=== PATIENT | female | born 1940 | race Caucasian/White ===

== ENCOUNTER 2018-08-01 12:22 | Inpatient (IN) ==
[2018-08-01] MEDS ORDERED: Naloxone 0.4 MG/ML INJ IVP PRN (16:55)
[2018-08-01] MEDS ORDERED: Heparin 25,000 UNIT/500 ML D5W 25,000 UNIT/500 ML BAG IVC SCH (17:00)
--- NOTE | 2018-08-01 17:26 | Internal Med History&Physical ---
Date of Encounter: 08/01/18 Time of Encounter: 16:30 Internal Medicine - H&P: HPI Chief complaint: Back Pain Admitted From: Home Plans for Post Hospital Care: Home History of present illness: Ms. Velasco is a 78 year old female with past medical history significant for hypertension, stable aortic aneurysm, rheumatoid arthritis, hypothyroidism, lung nodule, and GERD who presented to [facility] ER for constant sharp left lower back pain radiating to her left chest starting last night while at rest. The pain ranged in intensity from 4/10 - 8/10. Pain was accompanied by shortness of breath and nausea. Took Tylenol at home with no improvement. Denies any alleviating or exacerbating factors. Reports chronic pain with rheumatoid arthritis but this seemed different. Denies any vomiting, diaphoresis, abdominal pain, bowel or bladder changes. Received Toradol, Dilaudid, and started on heparin drip in ER and is currently reporting no pain at this time. ER reported EKG as sinus rhythm with no acute changes. Discussed patient with Dr Lux. Past Med Surg Social Fam HX - Past Medical History Medical history: arthritis, GERD, hypertension, RA, thyroid disease, other Additional medical history: OSTEOMYLITIS, CONSTIPATION Psychiatric history: no psych history - Past Surgical History Surgical History: hip replacement, orthopedic, other Additional surgical history: Right shoulder replacement. - Social History Smoking Status: Never smoker Smokeless Tobacco Status: No Alcohol use: none Drug use: none - Family History Brother Hx Family Cardiac Disorders: Yes (Hypertension) Internal Medicine - H&P: Meds Levothyroxine [Synthroid] 100 mcg PO DAILY 01/06/16 [History] Omeprazole [PriLOSEC] 20 mg PO DAILY 01/06/16 [History] amLODIPine [Norvasc] 10 mg PO DAILY 01/06/16 [History] Ondansetron ODT [Zofran ODT] 4 mg SL Q6HR PRN #10 tab.rapdis 02/07/16 [Rx] hydrALAZINE [HydrALAZINE] 25 mg PO BID 02/07/16 [History] Aspirin [Lo-Dose Aspirin EC] 81 mg PO DAILY 01/13/18 [History] Azathioprine [Imuran] 50 mg PO BID 01/13/18 [History] Cholecalciferol (D-3) [Vitamin D] 1,000 unit PO DAILY 01/13/18 [History] Amlodipine Besylate 10 mg PO DAILY 03/09/18 [History] Calcium Carbonate/Vitamin D3 [Calcium 500+D Tablet Chew] 1 tab PO DAILY [History] Docusate Sodium [Dok] 100 mg PO BID 03/09/18 [History] Vit C/E/Zn/Coppr/Lutein/Zeaxan [Preservision Areds 2 Softgel] 1 tab PO DAILY 08/17 [History] Aspirin Enteric Coated [Aspirin EC] 81 mg PO DAILY tablet. 03/10/18 [Rx] Azathioprine [Imuran] 50 mg PO BID tablet 03/10/18 [Rx] Calcium Carbonate [Tums] 500 mg PO DAILY tab.chew 03/10/18 [Rx] Cholecalciferol (D-3) [Vitamin D] 1,000 unit PO DAILY tablet 03/10/18 [Rx] Docusate [Colace] 100 mg PO BID capsule 03/10/18 [Rx] Levothyroxine [Synthroid] 100 mcg PO 0630 tablet 03/10/18 [Rx] Multivit/Ca/Min/Fe/FA [Thera M Plus] 1 tab PO DAILY tablet 03/10/18 [Rx] Omeprazole [PriLOSEC] 20 mg PO DAILY capsule. 03/10/18 [Rx] amLODIPine [Norvasc] 10 mg PO DAILY tablet 03/10/18 [Rx] hydrALAZINE [HydrALAZINE] 25 mg PO BID tablet 03/10/18 [Rx] 3 Allergy/AdvReac Type Severity Reaction Status Date / Time morphine Allergy Nausea Verified 03/09/18 13:12 Procaine [From Novocain] Allergy Blister Verified 03/09/18 13:12 risedronate sodium Allergy Unconscious Verified 03/09/18 13:12 [From Actonel] Sulfa (Sulfonamide Allergy See Verified 03/09/18 13:12 Antibiotics) Comments Teriparatide [From Forteo] Allergy Swelling Verified 03/09/18 13:12 of Lip/Tongue/Throat All Systems PM: A 10-system review of systems was performed and is negative for pertinent findings except as documented above in the HPI. - Constitutional Vitals: Temp Pulse Resp BP Pulse Ox 98.1 F 73 16 152/70 96 08/01/18 16:02 08/01/18 16:02 08/01/18 16:02 08/01/18 16:02 08/01/18 16:02 Exam: General: Alert and oriented. Skin:Normal color, no rash, no lesions. HEENT:Pupils equal, round and reactive. Cardiovascular:Normal S1 & S2, no rubs, murmurs or gallops. No JVD. Pulse regular. Lungs:Normal breath sounds, no wheezes or crackles. Abdomen:Soft, non-tender, no rigidity. Extremities:No edema or tenderness, no joint swelling or clubbing. Chronic contractures noted to bilateral hands and feet. Neurological:Normal cognition and motor skills. Pulses:Carotid and radial pulses normal +2. Rest of the physical exam is non contributory. - Assessment and plan (1) Non-ST elevation [place] (NSTEMI) Current Visit: Yes Status: Acute Assessment and plan: Continuous hospital monitor. Initial troponins 0.21 to 0.17, third troponin ordered for 17:30 today. Heparin drip started in ER, will continue. Cardiac diet. Cardiology consulted. (2) Hypertension Current Visit: Yes Status: Chronic Assessment and plan: Continue home medications. Qualifiers: Hypertension type: unspecified Qualified Code(s): I10 - Essential (primary ) hypertension (3) Lung nodule Current Visit: Yes Status: Chronic Assessment and plan: Partially calcified nodule in left upper lobe identified on Chest CTA, will need outpatient follow up. - Time Spent With Patient Total time spent is greater than 50% in coordination of care (as documented) at patient's floor/unit and/or counseling patient:
[2018-08-01 17:41] LABS: Heparin anti-factor XA UFH 0.96 IU/mL (0.30-0.70); INR 1.1; Prothrombin Time 11.9 Seconds (9.4-12.1)
[2018-08-01] MEDS ORDERED: *HR* Heparin 5,000 UNIT/ML VIAL IVP PRN ×2 (19:46)
[2018-08-02 01:57] LABS: Basophils % 0.9 %; Eosinophils # 0.4 K/mcL (0.0-0.6); Eosinophils % 8.1 %; Hematocrit 32.9 % (35.3-44.9); Hemoglobin 10.6 g/dL (11.5-15.4); Immature Granulocytes % 0.2 % (0-4); Lymphocytes % 22.1 %; Mean Corpuscular HGB Conc 32.2 g/dL (31.6-35.5); Mean Corpuscular Hemoglobin 31.5 pg (28.0-33.3); Mean Corpuscular Volume 97.9 fL (83.0-100.0); Mean Platelet Volume 9.3 fL (9.4-12.4); Monocytes # 0.4 K/mcL (0.0-1.3); Monocytes % 9.8 %; Neutrophils # 2.6 K/mcL (1.6-8.9); Platelet Count 238 K/mcL (140-400); Red Blood Count 3.36 M/mcL (3.82-4.97); Red Cell Distribution Width 15.3 % (11.5-14.5); Segmented Neutrophils % 58.9 %
[2018-08-02 02:15] LABS: BUN/Creatinine Ratio 23 (6-26); Blood Urea Nitrogen 16 mg/dL (8-23); Calcium 8.8 mg/dL (8.6-10.3); Carbon Dioxide 25 mEq/L (23-29); Chloride 107 mEq/L (98-107); Glucose 92 mg/dL (70-105); Osmolality,Calculated 287 (280-300); Potassium 3.7 mEq/L (3.5-5.1); Sodium 138 mEq/L (136-145); eGFR For Non-African Americans > 60 (> 60)
[2018-08-02] MEDS ORDERED: Ondansetron ODT 4 MG TAB.RAPDIS SL PRN (08:21)
[2018-08-02] MEDS ORDERED: NON-FORMULARY MEDICATION 1 EACH EACH (Calcium Carbonate/Vitamin D3 [Calcium 500+D Tablet C PO SCH (09:00)
--- NOTE | 2018-08-02 09:48 | Cardiology Consult Note ---
Date of Encounter: 08/02/18 Time of Encounter: 09:45 Assessment and Plan (1) Non-ST elevation [place] (NSTEMI) Current Visit: Yes Status: Acute Troponin 0.21, 0.17, 0.20. Presented with low/mid back pain. Improved with Dilaudid. BP 195/75 on presentation. On heparin gtt. ECG no ischemic changes compared to previous. DDimer elevated. CTA negative for PE. Denies cardiac hx. TTE to evaluate structure and function. Recommend C to further evaluate. R/B/A discussed. Pt agrees to proceed. LHC today. Continue ASA. Add statin and BB. Discussion w patient/family: The assessment and plan as outlined above was discussed with the patient and/or family members who expressed understanding and agreement. All questions were answered. Thank you for involving us in the care of your patient. Please call with any questions. I will discuss all the above with Dr. Figueredo and make changes as necessary. History of Present Illness Consult date: 08/02/18 Requesting physician: Zach Handy Consult reason: NSTEMI Chief complaint: back pain History of present illness: Ms. Velasco is a 78 year old female with PMH of HTN, stable aortic aneurysm, RA, hypothyroidism, lung nodule, and GERD who presented to [facility] ER for constant sharp lower back pain. Pain was accompanied by shortness of breath and nausea. Took Tylenol at home with no improvement. Denies any alleviating or exacerbating factors. Reports chronic pain with RA, but this seemed different. Received Toradol, then Dilaudid in the ED. Pt reports pain resolved with Dilaudid without recurrence. Denies actual chest pain. No known cardiac history. Negative stress test 07/14/16. Troponins 0.21, 0.17, 0.20. Cardiology consulted for further recs. Past Med Surg Social Fam HX - Past Medical History Medical history: arthritis, GERD, hypertension, RA, thyroid disease, other Additional medical history: OSTEOMYLITIS, CONSTIPATION Psychiatric history: no psych history - Past Surgical History Surgical History: hip replacement, orthopedic, other Additional surgical history: Right shoulder replacement. - Social History Smoking Status: Never smoker Smokeless Tobacco Status: No Alcohol use: none Drug use: none - Family History Brother Hx Family Cardiac Disorders: Yes (Hypertension) Medications and Allergies Omeprazole [PriLOSEC] 20 mg PO DAILY 01/06/16 [History] hydrALAZINE [HydrALAZINE] 25 mg PO BID 02/07/16 [History] Aspirin [Lo-Dose Aspirin EC] 81 mg PO DAILY 01/13/18 [History] Calcium Carbonate/Vitamin D3 [Calcium 500+D Tablet Chew] 1 tab PO DAILY [History] Vit C/E/Zn/Coppr/Lutein/Zeaxan [Preservision Areds 2 Softgel] 1 tab PO DAILY 08/17 [History] Docusate [Colace] 100 mg PO BID capsule 03/10/18 [Rx] Levothyroxine [Synthroid] 100 mcg PO 0630 tablet 03/10/18 [Rx] amLODIPine [Norvasc] 10 mg PO DAILY tablet 03/10/18 [Rx] Azathioprine [Imuran] 50 mg PO DAILY 08/01/18 [History] 3 Allergy/AdvReac Type Severity Reaction Status Date / Time morphine Allergy Nausea Verified 03/09/18 13:12 Procaine [From Novocain] Allergy Blister Verified 03/09/18 13:12 risedronate sodium Allergy Unconscious Verified 03/09/18 13:12 [From Actonel] Sulfa (Sulfonamide Allergy See Verified 03/09/18 13:12 Antibiotics) Comments Teriparatide [From Forteo] Allergy Swelling Verified 03/09/18 13:12 of Lip/Tongue/Throat All Systems Review: The remainder of the systems were reviewed and are negative - Cardiovascular Cardiovascular: as per HPI, dyspnea at rest - Respiratory Respiratory: dyspnea Physical Examination Vital Signs, Last 4 Hours Temp Pulse Resp BP Pulse Ox 08/02/18 07:09 98.2 F 66 15 153/77 97 Vital Signs Temp Pulse Resp BP Pulse Ox 08/02/18 07:09 98.2 F 66 15 153/77 97 08/02/18 03:12 98.1 F 74 16 154/57 97 08/01/18 23:29 98.4 F 78 16 155/64 95 08/01/18 18:46 98.1 F 77 16 157/69 94 08/01/18 16:02 98.1 F 73 16 152/70 96 Intake and Output 08/01/18 08/02/18 08/02/18 23:59 07:59 15:59 Intake Total 59 / 59 78 / 78 Balance Intake: IV Fluids Heparin 25,000 UNIT/500 ML D5W 25,000 unit In 500 ml @ 12 UNIT /KG/HR 16.996 mls/hr IVC .Q24H [facility] Rx#:[id number] Other: Weight 70.817 kg 70.3 kg Patient Weight 08/02/18 23:59 Weight 70.3 kg General: Conversant, No Apparent Distress HEENT: Atraumatic, Normocephaly, Mucus Membranes Moist Neck: No JVD, Normal carotid pulses Cardiac: Reg Rate and Rhythm, Normal S1 and S2, No Murmur Lungs: Normal Breath Sounds, No Wheeze, Rales, Rhonchi Neuro: Alert and responsive, No focal deficits noted Abdomen: Soft, Non-Tender Skin: No rashes noted on visualized skin Musculoskeletal: No Chest Wall Tenderness Extremities: No Clubbing, No Cyanosis, No Edema, Normal Pulses Results 08/02/18 01:40 08/02/18 01:40 Lab Results 08/01/18 08/01/18 08/02/18 17:23 19:52 01:40 WBC 4.5 Hgb 10.6 L Hct 32.9 L Plt Count 238 INR 1.1 Sodium Potassium Chloride Carbon Dioxide BUN Creatinine Glucose Calcium Troponin I 0.20 H* 08/02/18 01:40 WBC Hgb Hct Plt Count INR Sodium 138 Potassium 3.7 Chloride 107 Carbon Dioxide 25 BUN 16 Creatinine 0.71 Glucose 92 Calcium 8.8 Troponin I Short CBC 08/02/18 Range/Units 01:40 WBC 4.5 (4.3-11.1) K/mcL Hgb 10.6 L (11.5-15.4) g/dL Hct 32.9 L (35.3-44.9) % Plt Count 238 (140-400) K/mcL Neutrophils # 2.6 (1.6-8.9) K/mcL BMP 08/02/18 Range/Units 01:40 Sodium 138 (136-145) mEq/L Potassium 3.7 (3.5-5.1) mEq/L Chloride 107 (98-107) mEq/L Carbon Dioxide 25 (23-29) mEq/L BUN 16 (8-23) mg/dL Creatinine 0.71 (0.60-1.20) mg/dL Glucose 92 (70-105) mg/dL Calcium 8.8 (8.6-10.3) mg/dL Cardiac Enzymes 08/01/18 Range/Units 19:52 Troponin I 0.20 H* (< 0.04) ng/mL Active Medications Amlodipine Besylate (Norvasc) 10 mg PO DAILY [facility] PRN Reason: Protocol Stop: 02/01/19 09:01 Aspirin (Aspirin Ec) 81 mg PO DAILY [facility] Stop: 02/01/19 09:01 Azathioprine (Imuran) 50 mg PO DAILY [facility] Stop: 02/01/19 09:01 Calcium Carbonate (Tums) 500 mg PO DAILY [facility] Stop: 02/01/19 09:01 Docusate Sodium (Colace) 100 mg PO BID [facility] PRN Reason: Protocol Stop: 02/01/19 09:01 Heparin Sodium (Porcine) (Heparin) 4,000 unit IVP Q6HR PRN PRN Reason: SEE COMMENTS Stop: 01/31/19 19:47 Heparin Sodium (Porcine) (Heparin) 2,000 unit IVP Q6H PRN PRN Reason: SEE COMMENTS Stop: 01/31/19 19:47 Hydralazine HCl (Hydralazine) 25 mg PO BID [facility] Stop: 02/01/19 09:01 Heparin Sodium/Dextrose (Heparin 25,000 Unit/500 Ml D5w) 25,000 unit in 500 mls @ 16.996 mls/hr IVC .Q24H [facility]; 12 UNIT/KG/HR PRN Reason: Protocol Stop: 01/31/19 17:01 Last Titration: 08/02/18 02:12 Dose: 9 unit/kg/hr, 12.747 mls/hr Levothyroxine Sodium (Synthroid) 100 mcg PO 0630 [facility] Stop: 02/02/19 06:31 Multivitamins/Calcium (Thera M Plus) 1 tab PO DAILY [facility] Stop: 02/01/19 09:01 Naloxone HCl (Narcan) 0.4 mg IVP Q2MIN PRN PRN Reason: SEE COMMENTS Stop: 01/31/19 16:56 Omeprazole (Prilosec) 20 mg PO 0730 [facility] PRN Reason: Protocol Stop: 02/01/19 08:31 Ondansetron HCl (Zofran Odt) 4 mg SL Q6HR PRN PRN Reason: Nausea Stop: 02/01/19 08:22 Vitamin D (Vitamin D) 1,000 unit PO DAILY [facility] Stop: 02/01/19 09:01 - Imaging and Cardiology Stress Test: report reviewed - EKG Interpretation EKG results cardiology: personally reviewed (SR, similar to prior), other (12 hr tele aVG HR 69, SR, no significant pauses or arrhythmias noted.) Consult Discharge Plan - Plan Referrals: Rober Waldron, [employer] MANAGER [Primary Care Provider] -
--- NOTE | 2018-08-02 12:09 | Internal Med Progress Note ---
Hospitalist Progress Note - Encounter Date of Encounter: 08/02/18 Time of Encounter: 12:07 - Subjective Interval History: Patient seen and examined in the room, she reported back pain and chest pain have resolved after receiving the pain medicine at the ED. He denies shortness of breath, palpitation, or syncope. - Exam Vitals: Temp Pulse Resp BP Pulse Ox 98.2 F 66 15 153/77 97 08/02/18 07:09 08/02/18 07:09 08/02/18 07:09 08/02/18 07:09 08/02/18 07:09 Exam: General: Alert and oriented. Skin:Normal color, no rash, no lesions. HEENT:Pupils equal, round and reactive. Cardiovascular:Normal S1 & S2, no rubs, murmurs or gallops. No JVD. Pulse regular. Lungs:Normal breath sounds, no wheezes or crackles. Abdomen:Soft, non-tender, no rigidity. Extremities:No edema or tenderness, no joint swelling or clubbing. Chronic contractures noted to bilateral hands and feet. Neurological:Normal cognition and motor skills. Pulses:Carotid and radial pulses normal +2. Rest of the physical exam is non contributory. - Assessment and Plan (1) Non-ST elevation [place] (NSTEMI) Current Visit: Yes Status: Acute Assessment and Plan: Continuous secured entrance monitor. Initial troponins 0.21 to 0.17, third troponin ordered for 17:30 today. Heparin drip started in ER, will continue. Cardiac diet. Cardiology consulted. Echocardiogram ordered, [facility] recommended by cardiology. (2) Lung nodule Current Visit: Yes Status: Chronic Assessment and Plan: Partially calcified nodule in left upper lobe identified on Chest CTA, will need outpatient follow up. (3) Hypertension Current Visit: Yes Status: Chronic Assessment and Plan: Continue home medications. DVT Prophylaxis: On heparin drip. - Time Spent with Patient Total time spent is greater than 50% in coordination of care (as documented) at patient's floor/unit and/or counseling patient: Greater than 35 minutes Plan of Care Discussed with: patient Internal Medicine: Result - Labs CBC & Chem 7: 08/02/18 01:40 08/02/18 01:40 Labs: Short CBC 08/02/18 Range/Units 01:40 WBC 4.5 (4.3-11.1) K/mcL Hgb 10.6 L (11.5-15.4) g/dL Hct 32.9 L (35.3-44.9) % Plt Count 238 (140-400) K/mcL Neutrophils # 2.6 (1.6-8.9) K/mcL BMP 08/02/18 01:40 Sodium 138 Potassium 3.7 Chloride 107 Carbon Dioxide 25 BUN 16 Creatinine 0.71 Glucose 92 Calcium 8.8 Cardiac Enzymes 08/01/18 Range/Units 19:52 Troponin I 0.20 H* (< 0.04) ng/mL - ABG Interpretation ABG results: PT/INR, D-dimer PT 11.9 Seconds (9.4-12.1) 08/01/18 17:23 Consult Discharge Plan - Plan Referrals: Rober Waldron, PSYCHOLOGICAL ASSISTANT [Primary Care Provider] - (3) Hypertension Qualifiers: Hypertension type: unspecified Qualified Code(s): I10 - Essential (primary) hypertension
[2018-08-02] MEDS ORDERED: 0.9 % Sodium Chloride 1,000 ML ONE ×2 (12:23→12:53)
[2018-08-02] MEDS ORDERED: Heparin 1,000 UNITS/500 mL 500 ML ONE (12:23)
[2018-08-02] MEDS ORDERED: ISOVUE-370 200 ML INFUS..BTL IV ONE (12:23)
[2018-08-02] MEDS ORDERED: *HR* Heparin 10,000 UNIT/10 ML VIAL ONE (12:23)
[2018-08-02] MEDS ORDERED: Nitroglycerin 1,000 MCG/10 ML VIAL IV ONE (12:31)
[2018-08-02] MEDS ORDERED: *HR* Midazolam HCl 2 MG/2 ML VIAL ONE (12:47)
[2018-08-02] MEDS ORDERED: *HR* FentaNYL (PF) 100 MCG/2 ML VIAL ONE (12:47)
--- NOTE | 2018-08-02 12:54 | Pre-Sedation Evaluation ---
Pre-sedation evaluation - Pre-sedation checklist Date of procedure: 08/02/18 Procedure: LHC Recent Vitals: Last Vital Signs Temp 98.2 F 08/02/18 07:09 Pulse 66 08/02/18 07:09 Resp 15 08/02/18 07:09 BP 153/77 08/02/18 07:09 Pulse Ox 97 08/02/18 07:09 ASA Classification *see protocol: CLASS II-Mild systemic disease Cardiac Registry (Cardio Only) - Functional Capacity Functional Capacity: >=4 METS with symptoms - Clincal Frailty Scale Clinical Frailty Scale: Moderately Frail
--- NOTE | 2018-08-02 13:32 | Invasive Diagnostic Lab Proc ---
Name: Paola Velasco Date of Study: 08/02/2018 Date: 1940 Ht: 64.2in Medical Record#: [id number] Age: 78 Wt: 154.32lb Gender: Female BSA: 1.76 Order #: [id number] BMI: 26.35 Physicians Procedure Physician: Dhara Louise MD Referring MD: Referring MD: Staff Name Position Time In Valentino Ladonna RT (R) Monitor 12:56 PM Debbie Hsieh RN Spot Facer 12:56 PM Richard Avelar RT (R) Scrub 12:56 PM Indications Indication Non-Stemi Procedures Performed Procedure L HRT ARTERY/VENTRICLE ANGIO Pre-Procedure Checklist Informed consent is complete signed and on chart. H&P is on chart. ID band is on and ID verified with patient. Patient NPO for procedure The procedure was described for the patient and questions were answered. ECG is on chart. Plan of Care Patient will tolerate the procedure without complications. Adequate level of comfort will be maintained. Hemodynamics will remain stable Patient will recover from procedure without complications. Respiratory function will be maintained. Cardiac rhythm will remain stable. Patient temperature will be maintained. Patient and/or family have verbalized understanding of the procedure. Patient Education Chief Complaint/Reason for Test: Cardiac Cath Developmental Category: Geriatric (65+ years) Developmentally Appropriate for Age: Yes Learning Barriers: None Education Needs: Procedure Education Method: Verbal Information Taught: Cardiac Cath Educational Evaluation: Able to repeat information Intravenous Access Time IV Size Location DC'd Fluid/Drip Rate Units RN 12:42 PM 20g 1 /" Patent On Arrival Lt Arm 0.9NaCl 25 ml/hr Debbie Hsieh RN Allergies SULFA (sulfonamide) Codeine Lidocaine morphine *HR* CODEINE Teriparatide morphine,codeine,sulfa,novacaine *HR* Morphine Sulfa (Sulfonamide Antibiotics) Procaine ceftazidime risedronate sodium No Known Allergies Vital Signs Time BP (mmHg) HR (bpm) O2 Sat. RR (bpm) LOC 12:56 PM / % 5 = Fully awake and oriented or at pre-proc level 12:56 PM / % 4 = Oriented but drowsy 12:55 PM 177 / 76 72 % 15 12:59 PM 154 / 67 64 98 % 19 01:04 PM 162 / 68 64 98 % 12 01:09 PM 157 / 70 75 96 % 15 01:14 PM 161 / 64 71 99 % 24 01:19 PM 163 / 72 74 100 % 13 Procedural Medications Time Medication Dose Units Method Given By 12:56 PM Oxygen 2 L/min nasal cannula DecDebbie manning RN 12:56 PM Versed 1 mg Intravenous Debbie Hsieh RN 12:56 PM Fentanyl 50 mcg Intravenous Decnigel, Debbie GAY 01:02 PM Lidocaine 2% 10 ml Subcutaneous Dhara Louise MD ASA Classification: CLASS II- Mild systemic disease (i.e. well-controlled diabetes, hypertension, asthma, cigarette smoking) Nelda Score Preprocedure Postprocedure Activity 2- Moves 4 extremities sustained head lift Activity 2- Moves 4 extremities sustained head lift Circulation 2- SBP +/= 20 points of pre-anesthetic level Circulation 2- SBP +/= 20 points of pre-anesthetic level Consciousness 2- Awake and alert oriented x 3 Consciousness 2- Awake and alert oriented x 3 O2 Saturation 2- Able to maintain O2 satruation of 92% on room air O2 Saturation 2- Able to maintain O2 satruation of 92% on room air Respiratory 2- Able to deep breathe and cough well Respiratory 2- Able to deep breathe and cough well Total Score 10 Total Score 10 Contrast Agent: Isovue Diagnostic Contrast: 52 ml Total Contrast: 52 ml Fluoro Dose: 19 mGy Procedure Log Time Note Enter By 12:43 PM Pt arrived to manager lab 1 at 12:43 twilson 12:43 PM Heparin turned off on the floor when picking the patient up. twilson 12:49 PM CathStat 12:49 PM Physician arrived 12:49 twilson 12:49 PM Wilver and neda completed twilson 12:49 PM Sign in performed according to hospital policy. Informed consent was obtained. twilson 12:49 PM Procedure start 12:49 twilson 12:49 PM Patient charges- Angio tray pack, Navilyst 3mm J, Pulse Oximetry and ACIST tubing and transducer twilson 12:49 PM CathStat 12:53 PM Vitals capture started with the following parameters, Patient=Adult, Interval=5 min, Initial Lmdzcipa=509 mmHg, Deflation Rate=3 mmHg, Cuff placed on Right Arm 12:53 PM Recorded ECG: HR=71 Condition=Condition 1 12:55 PM HR=72 bpm, DNHJ=586/76 mmhg, Resp=15 B/min 12:56 PM Ladonna Avelar RT (R) Position: Monitor Time in: 12:56 twilson 12:56 PM Debbie Hsieh RN Position: Spot Facer Time in: 12:56 twilson 12:56 PM Richard Avelar RT (R) Position: Scrub Time in: 12:56 twilson 12:56 PM Case Delayed no twilson 12:56 PM Hair removed from procedure site in procedure lab using clippers. Bilateral groin prepped with Chloraprep by Ladonna Avelar (R), then patient was draped. Skin intact. twilson 12:56 PM Time: 12:56 Oxygen on at 2 L/min per nasal cannula by Debbie Hsieh RN twilson 12:56 PM Time: 12:56 Versed 1 mg Intravenous Given by Debbie Hsieh RN twilson 12:56 PM Time: 12:56 Fentanyl 50 mcg Intravenous Given [facility] 12[facility] PM Time: 12:56 Patient comfortable and pain free: Yes twilson 12:56 PM Time: 12:56LOC: 5 = Fully awake and oriented or at pre-proc level twilson 12:59 PM HR=64 bpm, CCXE=952/67 mmhg, SpO2=98.0 %, Resp=19 B/min 01:00 PM ASA Class CLASS II- Mild systemic disease (i.e. well-controlled diabetes, hypertension, asthma, cigarette smoking) twilson 01:01 PM Time out was performed according to hospital policy. Conscious sedation and anesthesia was achieved (see medication log with in this report above) twilson 01: PM Clinical Presentation: Non-STEMI twilson 01:02 PM Time: 13:02 10 ml Lidocaine 2% to right groin Subcutaneous Given by Dhara Louise MD twilson 01:04 PM Micro-Introducer Kit utilized for sheath placement twilson 01:04 PM Access obtained by percutaneous puncture. 5Fr 10cm Terumo [place] sheath placed in right Femoral artery. [id number] twilson 01:04 PM 5Fr FR 4 catheter inserted over the wire DNC twilson 01:04 PM HR=64 bpm, EFYJ=165/68 mmhg, SpO2=98.0 %, Resp=12 B/min 01:04 PM Wire removed twilson 01:04 PM RCA angiography performed in multiple views. twilson 01:05 PM Recorded Pressure: Ao, HR=69, Condition=Condition 1 (Aorta) Ao 148/77/110 01:05 PM Wire reinserted. twilson 01:05 PM Catheter removed twilson :05 PM 5Fr FL 4 catheter inserted over the wire [facility] twilson 01:06 PM Wire removed twilson 01:06 PM LCA angiography performed in multiple views. twilson 01:06 PM Recorded Pressure: Ao, HR=68, Condition=Condition 1 (Aorta) Ao 144/65/100 01:08 PM Recorded Pressure: Ao, HR=70, Condition=Condition 1 (Aorta) Ao 140/66/100 01:08 PM Lesion found in Proximal LAD. Pre Stenosis: 25 Pre LILLIAN Flow: twilson :09 PM Lesion found in Mid LAD. Pre Stenosis: 25 Pre LILLIAN Flow: twilson : PM Proximal Left Anterior Descending Coronary Artery with 25% stenosis. If graft is supplying this territory, 0 % stenosis. twilson :09 PM Mid/Distal Left Anterior Descending Coronary Artery and diagonal branches with 25% stenosis. If graft is supplying this area, 0 % stenosis twilson : PM HR=75 bpm, KMPW=624/70 mmhg, SpO2=96.0 %, Resp=15 B/min 01:10 PM Pressure channel 1 zeroed. :11 PM Wire reinserted. twilson :11 PM Catheter removed twilson : PM 5Fr Pigtail catheter inserted over the wire [facility] twilson :11 PM Catheter crossed the aortic valve and was selectively placed in the left ventricle. Pressures recorded on pullback for left heart catheterization. twilson :11 PM Wire removed twilson :11 PM Recorded Pressure: LV, HR=79, Condition=Condition 1 (Left Ventricle) LV 161/-4/12 01:11 PM Bolus angiogram of left Ventricle complete: 10 ml/sec for a total of 20 mls twilson 01:12 PM Time: 12:56LOC: 4 = Oriented but drowsy twilson 01:12 PM Time: 12:56 Patient comfortable and pain free: Yes twilson 01:12 PM Recorded Pressure: LV, Ao, HR=75, Condition=Condition 1 (Left Ventricle) LV 162/12/16, (Aorta) Ao 163/48/103 01:12 PM Wire reinserted. twilson 01:13 PM Catheter and wire removed, intact. twilson 01:13 PM Coronary Dominance: right twilson 01:13 PM Procedure completed at 13:13 08/02/2018 twilson :13 PM Did you address LILLIAN flow and Dominance? Yes twilson 01:14 PM Sign out completed: Radiation Dose 168.60 mGy, 18.5433 Gy/cm2 Fluoro Time: 1.6 Isovue 370 - 200ml contrast 52 ml given by Dhara Louise MD. Complications: None. 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 Cardiac Rehab Consult needed: NoConfirmed administered medications: Yes twilson 01:14 PM Isovue 370 - 200ml,1 Bottle(s) used. twilson 01:14 PM HR=71 bpm, SDVM=986/64 mmhg, SpO2=99.0 %, Resp=24 B/min 01:18 PM Arterial sheath pulled, Angio-seal closure device used and was Successful S/N. twilson 01:18 PM Estimated Blood Loss: minimal twilson 01:18 PM Post ECG NSR twilson 01:18 PM Post Blood Pressure 161/64 twilson 01:19 PM 13:19 Post Pulses Bilateral DP & PT 1+ twilson 01:19 PM 13:19 Post Pulses Bilateral radial 2+ twilson 01:19 PM Information taught Cardiac Cath and Angioseal twilson 01:19 PM HR=74 bpm, QDUA=863/72 mmhg, VwQ7=443.0 %, Resp=13 B/min 01:19 PM Education needs Procedure, Plan of Care, and Responsibilities of Patient in Care twilson 01:19 PM Learning barriers :None twilson 01:19 PM Education Methods Verbal twilson 01:19 PM Education evaluation Able to repeat information twilson 01:19 PM Site status No bleeding/hematoma - Rt Groin as reported by Richard Avelar RT (R) at 13:19 twilson 01:19 PM Opsite applied twilson 01:20 PM No family present at this time. twilson 01:22 PM Delay to floor No twilson 01:24 PM Report given to Kayce GAY Pt taken to 3B Room #24. 13:24 twilson 01:24 PM Patient out of room: 13:24 twilson Complications Complication None Hemodynamics Pressures Site Systolic/A Wave Diastolic/V Wave Mean AO 148 77 110 AO 144 65 100 AO 140 66 100 LV 161 -4 12 LV 162 12 16 AO 163 48 103 Post Procedure Information Blood Pressure: 161/64 mmHg Rhythm: NSR Post procedural instructions were given Closure Device Time Device Success/Fail 08/02/2018 1:22:00 PM Angio-Seal VIP Successful Site Checks Time Location Status Staff Sheath In? Note 01:19 PM Rt Groin No bleeding/hematoma Richard Avelar RT (R) Pulses Time Site Pre-Procedure Post-Procedure Note 08/02/2018 12:42:00 PM Bilateral DP & PT 1+ 08/02/2018 12:42:00 PM Bilateral radial 2+ 1:19:00 PM Bilateral DP & PT 1+ 1:19:00 PM Bilateral radial 2+ Updated by Ladonna Avelar RT (R) on 08/02/2018 1:24:40 PM electronically signed on 08/02/2018 1:26:33 PM with status of Final
--- NOTE | 2018-08-02 13:47 | Event Note ---
Date of Encounter: 08/02/18 Time of Encounter: 13:46 - Cardiology Event Note LHC with mild-moderate nonobstructive CAD. No intervention. Continue ASA, Statin, BB. Cardiology signing off. Reconsult PRN.
[2018-08-02] MEDS: Aspirin Enteric Coated 81 MG Tablet PO SCH (13:51)
[2018-08-02] MEDS: Cholecalciferol (D-3) 1,000 UNIT TABLET PO SCH (13:51)
[2018-08-02] MEDS: amLODIPine 5 MG TABLET PO SCH (13:52)
[2018-08-02] MEDS: hydrALAZINE 25 MG TABLET PO SCH ×2 (13:56→19:52)
[2018-08-02] MEDS: Multivit/Ca/Min/Fe/FA 1 TAB TABLET PO SCH (13:57)
[2018-08-03] MEDS ORDERED: *HR* Heparin 5,000 UNIT/ML VIAL SQ SCH (06:00)
[2018-08-03] MEDS: amLODIPine 5 MG TABLET PO SCH (09:42)
[2018-08-03] MEDS: Multivit/Ca/Min/Fe/FA 1 TAB TABLET PO SCH (09:42)
[2018-08-03] MEDS: Aspirin Enteric Coated 81 MG Tablet PO SCH (09:42)
[2018-08-03] MEDS: Cholecalciferol (D-3) 1,000 UNIT TABLET PO SCH (09:42)
[2018-08-03] MEDS: hydrALAZINE 25 MG TABLET PO SCH (09:42)
[2018-08-03 11:06] VITALS: BP 152/62
--- NOTE | 2018-08-03 12:09 | Discharge Summary ---
- NOTES TO OUTPATIENT PROVIDER Notes to Outpatient Provider: f/u with PCP within a week. F/u with cardiology within a week. Date of Encounter: 08/03/18 Time of Encounter: 12:04 - Discharge Diagnosis (1) Non-ST elevation AL (NSTEMI) Priority: Primary Status: Ruled-out (2) Lung nodule Priority: Secondary Status: Chronic (3) Hypertension Priority: Secondary Status: Chronic Qualifiers: Hypertension type: essential hypertension Qualified Code(s): I10 - Essential (primary) hypertension (4) Elevated troponin Priority: Primary Status: Acute Hospital course: Ms. Velasco is a 78 year old female with past medical history significant for hypertension, stable aortic aneurysm, rheumatoid arthritis, hypothyroidism, lung nodule, and GERD who presented to [facility] ER for constant sharp left lower back pain radiating to her left chest starting last night while at rest. The pain ranged in intensity from 4/10 - 8/10. Pain was accompanied by shortness of breath and nausea. Took Tylenol at home with no improvement. Denies any alleviating or exacerbating factors. Reports chronic pain with rheumatoid arthritis but this seemed different. Denies any vomiting, diaphoresis, abdominal pain, bowel or bladder changes. Received Toradol, Dilaudid, and started on heparin drip in ER and is currently reporting no pain at this time. ER reported EKG as sinus rhythm with no acute changes. Initial troponin was elevated at 0.2. A CT chest with IV contrast was performed which revealed no PE, stable aortic aneurysm, and no pneumonia. Cardiology was consulted. Patient was placed on heparin drip. She underwent left heart catheterization on 08/02/2018, which revealed minimal coronary disease but no ACS. Medical management was recommended. A repeat echocardiogram revealed preserved ejection fraction with mild LVDD. Patient troponin trended down to 0.12 this morning. Although there is no clearly determined etiology at this time, the elevation of troponin is most likely caused by transient ischemia. There is no arrythmia on the tele monitoring. Patient was instructed to continue to take home medication and the controls her blood pressure and hyperlipidemia. Patient will be discharged home today, she was instructed to follow-up with PCP and cardiology within 1 week. Discharge discussed with: patient, family Time spent discussing smoking cessation with patient: more than 10 minutes - Time Spent with Patient Total time spent providing and/or coordinating discharge services: Greater than 30 minutes - Discharge Medications Prescriptions: Metoprolol [Lopressor] 25 mg PO BID #60 tablet Home Medications: Omeprazole [PriLOSEC] 20 mg PO DAILY 01/06/16 [History] hydrALAZINE [HydrALAZINE] 25 mg PO BID 02/07/16 [History] Aspirin [Lo-Dose Aspirin EC] 81 mg PO DAILY 01/13/18 [History] Calcium Carbonate/Vitamin D3 [Calcium 500+D Tablet Chew] 1 tab PO DAILY [History] Vit C/E/Zn/Coppr/Lutein/Zeaxan [Preservision Areds 2 Softgel] 1 tab PO DAILY 08/17 [History] Docusate [Colace] 100 mg PO BID capsule 03/10/18 [Rx] Levothyroxine [Synthroid] 100 mcg PO 0630 tablet 03/10/18 [Rx] amLODIPine [Norvasc] 10 mg PO DAILY tablet 03/10/18 [Rx] Atorvastatin [Lipitor] 40 mg PO HS #30 tablet 08/03/18 [Rx] Cholecalciferol (D-3) [Vitamin D] 1,000 unit PO DAILY #30 tablet 08/03/18 [Rx] Metoprolol [Lopressor] 25 mg PO BID #60 tablet 08/03/18 [Rx] Allergies/Adverse Reactions: 3 Allergy/AdvReac Type Severity Reaction Status Date / Time morphine Allergy Nausea Verified 03/09/18 13:12 Procaine [From Novocain] Allergy Blister Verified 03/09/18 13:12 risedronate sodium Allergy Unconscious Verified 03/09/18 13:12 [From Actonel] Sulfa (Sulfonamide Allergy See Verified 03/09/18 13:12 Antibiotics) Comments Teriparatide [From Forteo] Allergy Swelling Verified 03/09/18 13:12 of Lip/Tongue/Throat Date of admission: 08/01/18 15:07 Primary care physician: Rober Waldron CNP Consults: 08/01/18 17:01 Consult to Cardiology [CONS] Routine Comment: Consulting Provider: Cardiology Philomena Reason for Consult: Patient from [facility] ER, with lower back pain starting last night, and elevated troponins in ER, started on heparin drip in ER. Call Completed: No 10/03/18 15:10 Consult to Cardiac Rehabilitation-Phase1 [CONS] Routine Comment: Reason for Consult: NSTEMI Call Completed: No Anticipated date of discharge: 08/03/18 - Constitutional Vitals: Temp Pulse Resp BP Pulse Ox 97.8 F 56 16 152/62 97 08/03/18 11:04 08/03/18 11:04 08/03/18 11:04 08/03/18 11:04 08/03/18 11:04 General appearance: Present: cooperative, A&O X 3, answers questions appropriately Exam: General: Alert and oriented. Skin:Normal color, no rash, no lesions. HEENT:Pupils equal, round and reactive. Cardiovascular:Normal S1 & S2, no rubs, murmurs or gallops. No JVD. Pulse regular. Lungs:Normal breath sounds, no wheezes or crackles. Abdomen:Soft, non-tender, no rigidity. Extremities:No edema or tenderness, no joint swelling or clubbing. Chronic contractures noted to bilateral hands and feet. Neurological:Normal cognition and motor skills. Pulses:Carotid and radial pulses normal +2. Rest of the physical exam is non contributory. - Patient Status Disposition: Home, Self-Care Condition: Fair Functional capacity at discharge: independent ambulation Overall status at discharge: patient is back to baseline - Discharge Instructions Instructions: Metoprolol (By mouth), Left Heart Catheterization (DC) Follow Up With: Rober Waldron CNP [Primary Care Provider] - 08/04/18 8:40 am Additional Instructions: RISK FACTORS: STOP SMOKING: If you smoke, STOP. Smoking or tobacco use significantly increases your risk of heart disease because nicotine causes the arteries to narrow or constrict. It also causes fats to stick to the artery. Your chances of having a heart attack are greatly increased if you continue to smoke. For more information, call the education line for smoking cessation 6-063-FKTXNDA EAT A LOW FAT/CHOLESTEROL/SODIUM DIET: This diet may help reduce your chances of having a heart attack. LIFTING: Avoid lifting anything more than 10 pounds for 5-7 days Prior to straining, laughing, sneezing and/or coughing, apply manual pressure directly over insertion site. ACTIVITY: You may walk or climb stairs as tolerated You can resume sexual activity as tolerated In general, you are encouraged to engage in a minimum of 30 minutes or more of moderate intensity physical activity, such as brisk walking, daily or at least 3 -4 times weekly BATHING Do not submerge the site into water (bath tub, hot tub, swimming pool) for 1 week. This can be a source for infection into the blood stream. You may shower after 24 hours SITE CARE: After 24 hours, you may remove the dressing and leave the site open to air. Keep the site clean and dry. Clean gently and pat dry. You can expect bruising and tenderness that gradually resolve within a week or two. Return to work as instructed per your physician Resume driving as instructed per physician Keep all scheduled follow up appointments Resume medications as instructed IMPORTANT: If prescribed a Platelet Aggregation Inhibitor such as, Plavix, Brilinta or Effient: Duration of therapy is minimum one year These medications are often used in combination with Aspirin in prevention of future heart attacks Never discontinue unless consult with your Chute Greaser STROKE (CVA) Risk factors for a stroke are: Age, cigarette smoking, diabetes, excessive alcohol consumption, family history, high blood pressure, overweight, physical inactivity, prior stroke, heart attack, diagnosis of carotid artery stenosis or other artery disease. Warning signs: Sudden numbness or weakness of the face, arm or leg; especially on one side of the body, sudden confusion, trouble speaking or understanding, sudden trouble seeing in one or both eyes, sudden trouble walking, dizziness, loss of balance or coordination, sudden severe headache with no cause. Call 911 or go to the Emergency Room. CONGESTIVE HEART FAILURE: If you have been diagnosed with Congestive Heart Failure (CHF) and your symptoms return, make an appointment with your physician Weigh yourself daily. Notify your physician if you have a weight gain of two or more pounds in one day or five or more pounds in one week. If you experience any difficulty breathing, please call 911 BLEEDING: Although the risk of bleeding is minimal, it can happen. If you have any bleeding from the site, apply firm pressure above the puncture site for 10-15 minutes. If the bleeding does not stop, continue manual pressure and call 911 Contact your physician if: You develop a fever greater than 101 degrees Fahrenheit Your site becomes reddened or has any drainage You have an increase in pain or burning at the site or if a large knot forms at the site. If you experience chest pain, shortness of breath, dizziness, or extreme tiredness, stop the activity and rest. Please notify your physicians office if you experience any of these symptoms and they are not relieved by rest please call 911! - Diet and Activity Activity: increase activity as tolerated Diet: low fat, low cholesterol, low salt diet
== END 2018-08-03 12:54 | disposition home or self-care (01) | DRG 282 ==
LOC: 3BNU
PROVIDERS: ADMIT Internal Medicine; ATTEND Internal Medicine

== ENCOUNTER 2022-03-09 18:51 | Inpatient (IN) ==
[2022-03-09] MEDS ORDERED: Naloxone 0.4 MG/ML INJ IVP PRN (21:30)
[2022-03-09] MEDS ORDERED: Acetaminophen 325 MG TABLET PO PRN (21:30)
[2022-03-10] MEDS: amLODIPine 5 MG TABLET PO SCH ×2 (00:32→08:40)
[2022-03-10] MEDS: Melatonin 3 MG TABLET PO PRN ×2 (00:32→21:01)
[2022-03-10 02:15] LABS: Hematocrit 33.9 % (35.3-44.9); Mean Corpuscular HGB Conc 32.4 g/dL (31.6-35.5); Mean Corpuscular Hemoglobin 33.3 pg (28.0-33.3); Mean Corpuscular Volume 102.7 fL (83.0-100.0); Mean Platelet Volume 9.2 fL (9.4-12.4); Platelet Count 283 K/mcL (140-400); Red Cell Distribution Width 13.8 % (11.5-14.5); White Blood Count 5.2 K/mcL (4.3-11.1)
[2022-03-10 02:41] LABS: BUN/Creatinine Ratio 17 (6-26); Blood Urea Nitrogen 17 mg/dL (8-23); Calcium 9.3 mg/dL (8.6-10.3); Carbon Dioxide 25 mEq/L (23-29); Chloride 105 mEq/L (98-107); Glucose 105 mg/dL (70-105); Osmolality,Calculated 288 (280-300); Potassium 3.5 mEq/L (3.5-5.1); Sodium 138 mEq/L (136-145); eGFR For African Americans > 60 (> 60); eGFR For Non-African Americans 54 (> 60)
[2022-03-10] MEDS ORDERED: *HR* Labetalol 20 MG/4 ML SYRINGE IVP ONE (05:04)
[2022-03-10] MEDS: Cyanocobalamin (B-12) 1,000 MCG TABLET PO SCH (08:40)
[2022-03-10] MEDS: cloNIDine HCL 0.1 MG TABLET PO SCH ×3 (08:40→21:01)
[2022-03-10] MEDS: Folic Acid 1 MG TABLET PO SCH (08:40)
[2022-03-10] MEDS: predniSONE 5 MG TABLET PO SCH (08:40)
[2022-03-10 14:47] LABS: Bacteria,Urine Few per hpf (None-Few); Bilirubin,Urine Negative (Negative); Blood,Urine Negative (Negative); Clarity,Urine Turbid (Clear); Color,Urine Light-Yellow (Yellow); Glucose,Urine (UA) Normal (Normal); Ketones,Urine Negative (Negative); Leukocyte Esterase,Urine Moderate (Negative); Mucus,Urine Few per lpf (None-Few); Nitrite,Urine Negative (Negative); Protein,Urine 200 mg/dL (Neg-Trace); Specific Gravity,Urine 1.029 (1.010-1.025); Squamous Epithelial Cell,Urine Few per hpf (None-Few); Transitional Epi Cells,Urine Few per hpf (None-Few); Urobilinogen,Urine Normal (Normal); WBC,Urine 50-100 per hpf (0-3)
[2022-03-10] MEDS: *HR* Heparin 5,000 UNIT/ML VIAL SQ SCH (17:22)
[2022-03-10] MEDS ORDERED: levoFLOXacin 750 MG/150 ML 750 MG/150 ML BAG IVPB ONE (18:08)
[2022-03-10] MEDS ORDERED: BISOPROLOL FUMARATE 5 MG PO SCH (21:00)
[2022-03-10] MEDS: Gabapentin 300 MG CAPSULE PO SCH (21:02)
[2022-03-11 02:17] LABS: Triiodothyronine (T3) Free 2.02 pg/mL (2.50-3.90)
[2022-03-11 02:43] LABS: Thyroid Stimulating Hormone 78.225 mcIU/mL (0.340-5.600)
[2022-03-11] MEDS: *HR* Heparin 5,000 UNIT/ML VIAL SQ SCH ×2 (06:30→18:33)
[2022-03-11] MEDS: cloNIDine HCL 0.1 MG TABLET PO SCH ×3 (09:49→22:16)
[2022-03-11] MEDS: amLODIPine 5 MG TABLET PO SCH (09:49)
[2022-03-11] MEDS: Folic Acid 1 MG TABLET PO SCH (09:49)
[2022-03-11] MEDS: Loratadine 10 MG TABLET PO SCH (09:49)
[2022-03-11] MEDS: Cyanocobalamin (B-12) 1,000 MCG TABLET PO SCH (09:49)
[2022-03-11] MEDS: Gabapentin 300 MG CAPSULE PO SCH ×2 (09:49→22:16)
[2022-03-11] MEDS: predniSONE 5 MG TABLET PO SCH (09:50)
[2022-03-11] MEDS: hydroCHLOROthiazide 25 MG TABLET PO SCH (09:50)
[2022-03-12] MEDS: *HR* Heparin 5,000 UNIT/ML VIAL SQ SCH (05:46)
[2022-03-12] MEDS: cloNIDine HCL 0.1 MG TABLET PO SCH ×2 (09:32→16:03)
[2022-03-12] MEDS: Gabapentin 300 MG CAPSULE PO SCH (09:32)
[2022-03-12] MEDS: Folic Acid 1 MG TABLET PO SCH (09:32)
[2022-03-12] MEDS: amLODIPine 5 MG TABLET PO SCH (09:32)
[2022-03-12] MEDS: Cyanocobalamin (B-12) 1,000 MCG TABLET PO SCH (09:32)
[2022-03-12] MEDS: Loratadine 10 MG TABLET PO SCH (09:32)
[2022-03-12] MEDS: hydroCHLOROthiazide 25 MG TABLET PO SCH (09:33)
[2022-03-12] MEDS: predniSONE 5 MG TABLET PO SCH (09:33)
[2022-03-12 11:44] VITALS: BP 111/63; PULSE 53; TEMP 97.4; O2SAT 95
[2022-03-12 12:29] LABS: Adenovirus Not Detected (Not Detect); Bordetella Pertussis Not Detected (Not Detect); Chlamydophila pneumoniae Not Detected (Not Detect); Coronavirus 229E Not Detected (Not Detect); Coronavirus HKU1 Not Detected (Not Detect); Coronavirus NL63 Not Detected (Not Detect); Coronavirus OC43 Not Detected (Not Detect); Human Metapneumovirus Not Detected (Not Detect); Human Rhinovirus/Enterovirus Not Detected (Not Detect); Influenza A Subtype 2009 H1 Not Detected (Not Detect); Influenza B Not Detected (Not Detect); Mycoplasma pneumoniae Not Detected (Not Detect); Parainfluenza Virus 1 Not Detected (Not Detect); Parainfluenza Virus 2 Not Detected (Not Detect); Parainfluenza Virus 3 Not Detected (Not Detect); Parainfluenza Virus 4 Not Detected (Not Detect); Respiratory Syncytial Virus Not Detected (Not Detect); SARS-CoV-2 Not Detected (Not Detect)
[2022-03-12] MEDS ORDERED: levoFLOXacin 750 MG/150 ML 750 MG/150 ML BAG IVPB SCH (18:00)
== END 2022-03-12 17:08 | DRG 690 ==
LOC: 2ANU → SUATTDRO 20:59
PROVIDERS: ADMIT Internal Medicine; ATTEND Internal Medicine

== ENCOUNTER 2022-03-19 14:25 | Inpatient (IN) ==
[2022-03-19] MEDS ORDERED: *HR* Labetalol 20 MG/4 ML SYRINGE IVP ONE (23:27)
[2022-03-20] MEDS ORDERED: Naloxone 0.4 MG/ML INJ IVP PRN (02:18)
[2022-03-20] MEDS ORDERED: Ondansetron 4 MG/2 ML VIAL IVP PRN (02:18)
[2022-03-20 05:28] LABS: Hematocrit 33.3 % (35.3-44.9); Mean Corpuscular Hemoglobin 32.7 pg (28.0-33.3); Mean Corpuscular Volume 99.1 fL (83.0-100.0); Mean Platelet Volume 9.6 fL (9.4-12.4); Platelet Count 301 K/mcL (140-400); Red Blood Count 3.36 M/mcL (3.82-4.97); Red Cell Distribution Width 13.9 % (11.5-14.5); White Blood Count 8.2 K/mcL (4.3-11.1)
[2022-03-20 05:36] LABS: INR 1.1; Prothrombin Time 12.7 Seconds (9.4-12.1)
[2022-03-20 05:39] LABS: Activated Partial Thrombo Time 27.2 Seconds (26.0-36.0)
[2022-03-20] MEDS: Famotidine 20 MG/2 ML VIAL IVP SCH ×2 (05:40→19:10)
[2022-03-20 05:42] LABS: Estimated Average Glucose 105 mg/dl; Hemoglobin A1C 5.3 %
[2022-03-20 05:51] LABS: BUN/Creatinine Ratio 25 (6-26); Blood Urea Nitrogen 27 mg/dL (8-23); Calcium 9.1 mg/dL (8.6-10.3); Carbon Dioxide 21 mEq/L (23-29); Chloride 108 mEq/L (98-107); Chol/HDL Ratio 4.1 (0-4.9); Cholesterol 174 mg/dL (< 200); Glucose 91 mg/dL (70-105); HDL Cholesterol 42 mg/dL (40-59); LDL Cholesterol,Calculated 105 mg/dL (< 100); Osmolality,Calculated 291 (280-300); Potassium 3.8 mEq/L (3.5-5.1); Sodium 138 mEq/L (136-145); Triglycerides 137 mg/dL (< 150); eGFR For African Americans > 60 (> 60); eGFR For Non-African Americans 50 (> 60)
[2022-03-20 05:52] LABS: Troponin I < 0.03 ng/mL (< 0.04)
[2022-03-20 05:54] LABS: % Iron Saturation 19 % (15-50); Iron 52 mcg/dL (50-170); Transferrin 196 mg/dL (203-362)
[2022-03-20 06:07] LABS: Thyroid Stimulating Hormone 25.837 mcIU/mL (0.340-5.600)
[2022-03-20 06:10] LABS: Ferritin 64 ng/mL (10-120)
[2022-03-20 06:50] LABS: Folate > 22.3 ng/mL (3.0-16.0); Vitamin B12 > 1500 pg/mL (250-1100)
[2022-03-20] MEDS: Aspirin Enteric Coated 81 MG Tablet PO SCH (10:26)
[2022-03-20] MEDS ORDERED: Ondansetron 4 MG/2 ML VIAL ONE (10:53)
[2022-03-20] MEDS ORDERED: Lidocaine -MPF 2% 2 ML VIAL ONE ×2 (10:53→11:43)
[2022-03-20] MEDS ORDERED: *HR* Labetalol 20 MG/4 ML SYRINGE IVP ONE ×2 (10:54→12:19)
[2022-03-20] MEDS ORDERED: *HR* Propofol 200 MG/20 ML VIAL IVP ONE ×2 (10:54→11:43)
[2022-03-20] MEDS: cloNIDine HCL 0.1 MG TABLET PO SCH (20:35)
[2022-03-20] MEDS: amLODIPine 5 MG TABLET PO SCH (20:35)
[2022-03-20] MEDS: Gabapentin 300 MG CAPSULE PO SCH (20:35)
[2022-03-21 06:26] LABS: Basophils # 0.1 K/mcL (0.0-0.2); Basophils % 0.7 %; Eosinophils # 0.3 K/mcL (0.0-0.6); Eosinophils % 4.5 %; Hematocrit 31.5 % (35.3-44.9); Hemoglobin 10.2 g/dL (11.5-15.4); Immature Granulocytes % 0.7 % (0-4); Mean Corpuscular HGB Conc 32.4 g/dL (31.6-35.5); Mean Corpuscular Hemoglobin 32.9 pg (28.0-33.3); Mean Corpuscular Volume 101.6 fL (83.0-100.0); Mean Platelet Volume 9.6 fL (9.4-12.4); Monocytes % 13.4 %; Platelet Count 230 K/mcL (140-400); Segmented Neutrophils % 67.7 %; White Blood Count 7.4 K/mcL (4.3-11.1)
[2022-03-21 06:40] LABS: Calcium 8.6 mg/dL (8.6-10.3); Potassium 4.2 mEq/L (3.5-5.1)
[2022-03-21] MEDS ORDERED: *HR* Heparin 5,000 UNIT/ML VIAL IVP PRN ×2 (06:49)
[2022-03-21] MEDS ORDERED: *HR* Heparin 5,000 UNIT/ML VIAL IVP ONE (06:49)
[2022-03-21] MEDS: Famotidine 20 MG/2 ML VIAL IVP SCH (14:13)
[2022-03-21] MEDS: Aspirin Enteric Coated 81 MG Tablet PO SCH (14:14)
[2022-03-21] MEDS: cloNIDine HCL 0.1 MG TABLET PO SCH ×3 (14:14→21:54)
[2022-03-21] MEDS: Heparin 25,000UNIT/250ML 1/2NS 25,000 UNIT/250 ML IV.SOLN IVC SCH (14:14)
[2022-03-21] MEDS: Megestrol Acetate 400 MG/10 ML UDC PO SCH (14:15)
[2022-03-21] MEDS: Gabapentin 300 MG CAPSULE PO SCH ×2 (14:15→21:55)
[2022-03-21] MEDS: Ringers Solution, Lactated 1,000 ML IVC SCH (15:32)
[2022-03-21] MEDS: amLODIPine 5 MG TABLET PO SCH (21:54)
[2022-03-22 04:52] LABS: Basophils % 0.6 %; Eosinophils # 0.3 K/mcL (0.0-0.6); Eosinophils % 5.1 %; Hematocrit 31.8 % (35.3-44.9); Hemoglobin 10.1 g/dL (11.5-15.4); Immature Granulocytes % 0.7 % (0-4); Immature Platelets 2.7 % (1.1-6.1); Lymphocytes # 0.9 K/mcL (0.6-4.6); Lymphocytes % 13.5 %; Mean Corpuscular HGB Conc 31.8 g/dL (31.6-35.5); Mean Corpuscular Hemoglobin 32.7 pg (28.0-33.3); Mean Corpuscular Volume 102.9 fL (83.0-100.0); Monocytes % 14.6 %; Neutrophils # 4.4 K/mcL (1.6-8.9); Platelet Count 203 K/mcL (140-400); Red Blood Count 3.09 M/mcL (3.82-4.97); Red Cell Distribution Width 14.2 % (11.5-14.5); Segmented Neutrophils % 65.5 %; White Blood Count 6.7 K/mcL (4.3-11.1)
[2022-03-22 05:08] LABS: Calcium 8.7 mg/dL (8.6-10.3); Potassium 4.4 mEq/L (3.5-5.1)
[2022-03-22] MEDS: Ringers Solution, Lactated 1,000 ML IVC SCH (06:57)
[2022-03-22] MEDS: Megestrol Acetate 400 MG/10 ML UDC PO SCH (07:50)
[2022-03-22] MEDS: Aspirin Enteric Coated 81 MG Tablet PO SCH (07:50)
[2022-03-22] MEDS: Gabapentin 300 MG CAPSULE PO SCH (07:50)
[2022-03-22] MEDS: cloNIDine HCL 0.1 MG TABLET PO SCH ×2 (07:50→14:45)
[2022-03-22 08:47] LABS: Amorphous Sediment,Urine Few per hpf (None-Few); Bacteria,Urine Many per hpf (None-Few); Bilirubin,Urine Negative (Negative); Blood,Urine Small (Negative); Clarity,Urine Ex.Turbid (Clear); Color,Urine Yellow (Yellow); Glucose,Urine (UA) Normal (Normal); Ketones,Urine Negative (Negative); Leukocyte Esterase,Urine Moderate (Negative); Mucus,Urine Few per lpf (None-Few); Nitrite,Urine Negative (Negative); PH,Urine 7.5 pH Units (5.0-8.0); Protein,Urine 70 mg/dL (Neg-Trace); Specific Gravity,Urine 1.012 (1.010-1.025); Squamous Epithelial Cell,Urine Few per hpf (None-Few); Urobilinogen,Urine Normal (Normal); WBC,Urine 15-30 per hpf (0-3)
[2022-03-22] MEDS ORDERED: Loratadine 10 MG TABLET PO SCH (09:00)
[2022-03-22] MEDS ORDERED: Famotidine 20 MG/2 ML VIAL IVP SCH (09:00)
[2022-03-22] MEDS ORDERED: Folic Acid 1 MG TABLET PO SCH (09:00)
[2022-03-22] MEDS ORDERED: hydroCHLOROthiazide 25 MG TABLET PO SCH (09:00)
[2022-03-22] MEDS: Heparin 25,000UNIT/250ML 1/2NS 25,000 UNIT/250 ML IV.SOLN IVC SCH (09:06)
[2022-03-22 11:26] VITALS: BP 125/70; PULSE 83; TEMP 97.8; O2SAT 97
== END 2022-03-22 16:18 | disposition hospice, home (50) | DRG 559 ==
LOC: 4WAOSI → SUATTDRO 20:57 → 4WAOSI 21:59
PROVIDERS: ADMIT Pharmacist; ATTEND Family Medicine